=== PATIENT | female | born 1965 | race Caucasian/White ===

== ENCOUNTER 2021-09-18 15:02 | Outpatient (CLI) | payer BC, SELFPAY ==
--- NOTE | 2021-09-18 15:20 | CRLHL7_ITS ---
For Patients: As a result of the Century Cures Act, medical imaging exams and procedure reports are released immediately into your electronic medical record. You may view this report before your referring provider. If you have questions, please contact your health care provider. BILATERAL MAMMOGRAM WITH COMPUTER-AIDED DETECTION AND TOMOSYNTHESIS TECHNIQUE: CC and MLO views were obtained. These mammographic images have been obtained using full-field digital technique. These mammographic images were interpreted with the benefit of computer-aided detection. Breast Tomosynthesis was used in this interpretation. COMPARISON FILM: 08/19/2020, 08/15/2019, 07/19/2017. FINDINGS: The breasts are heterogeneously dense, which may obscure small masses IMPRESSION: There is no radiographic evidence for malignancy. ASSESSMENT: BI-RADS Category 1: Negative RECOMMENDATION: Routine screening mammogram in 1 year. A lay language report of this examination will be provided to the patient. Shayne Williamson M.D. Diagnostic Radiologist [email or web address] CHEIKH/bear / be/Dictated by: Shayne Williamson MD @ 09/19/2021 2:04:00 PM (Electronically Signed)
== END 2021-09-18 15:03 | disposition home or self-care (01) ==
LOC: MAMMO 15:03
PROVIDERS: PCP Physician Assistant Medical; Visit Provider Physician Assistant Medical
DX: Z12.31 Encounter for screening mammogram for malignant neoplasm of breast (principal); R92.2 Inconclusive mammogram
CPT/HCPCS: 77063; 77067

== ENCOUNTER 2022-03-27 09:53 | Outpatient (CLI) | payer BC, SELFPAY ==
[2022-03-27 15:05] LABS: Albumin* 4.6 g/dL (3.3-5.0); Chloride* 106 mmol/L (96-114)
[2022-03-27 15:06] LABS: Potassium* 4.2 mmol/L (3.6-5.1); Sodium* 141 mmol/L (135-149)
[2022-03-27 15:08] LABS: Alkaline Phosphatase* 74 U/L (40-150); Aspartate Amino Transferase* 29 U/L (12-35); Bilirubin Total* 0.7 mg/dL (0.1-1.5); Blood Urea Nitrogen* 22 mg/dL (7-30); Carbon Dioxide* 28 mmol/L (20-32); Cholesterol* 194 mg/dL (90-199); Creatinine* 0.7 mg/dL (0.5-1.5); Estimated Glomerular Filt Rate 101 ml/min; Glucose* 98 mg/dL (60-115); Total Protein* 7.3 g/dL (6.0-8.3)
[2022-03-27 15:09] LABS: Alanine Aminotransferase* 29 U/L (4-35); Calcium* 9.3 mg/dL (8.4-10.6); HDL Cholesterol* 68 mg/dL (>=50); LDL Cholesterol Calculated 102 mg/dL (<100); Triglycerides* 122 mg/dL (40-149)
== END 2022-03-27 09:54 | disposition home or self-care (01) ==
PROVIDERS: PCP Physician Assistant Medical; Visit Provider Physician Assistant Medical
DX: Z00.00 Encounter for general adult medical examination without abnormal findings (principal); Z13.6 Encounter for screening for cardiovascular disorders; Z13.29 Encounter for screening for other suspected endocrine disorder
CPT/HCPCS: 80053; 80061; 84443

== ENCOUNTER 2022-09-23 13:38 | Outpatient (CLI) | payer BC, SELFPAY ==
--- NOTE | 2022-09-23 14:00 | CRLHL7_ITS ---
For Patients: As a result of the Century Cures Act, medical imaging exams and procedure reports are released immediately into your electronic medical record. You may view this report before your referring provider. If you have questions, please contact your health care provider. BILATERAL SCREENING MAMMOGRAM WITH COMPUTER-AIDED DETECTION AND TOMOSYNTHESIS TECHNIQUE: CC and MLO views were obtained. These mammographic images have been obtained using full-field digital technique. These mammographic images were interpreted with the benefit of computer-aided detection. Breast Tomosynthesis was used in this interpretation. COMPARISON FILM: 09/18/21, 08/19/21, 08/15/19. FINDINGS: The breasts are heterogeneously dense, which may obscure small masses IMPRESSION: There is no radiographic evidence for malignancy. ASSESSMENT: BI-RADS Category 1: Negative RECOMMENDATION: Routine screening mammogram in 1 year. A lay language report of this examination will be provided to the patient. Mario Sierra M.D. Diagnostic/Nuclear Medicine Radiologist [email or web address] INA/Dictated by: Mario Sierra MD @ 09/24/2022 9:13:00 AM (Electronically Signed)
== END 2022-09-23 13:39 | disposition home or self-care (01) ==
PROVIDERS: PCP Physician Assistant Medical; Visit Provider Physician Assistant Medical
DX: Z12.31 Encounter for screening mammogram for malignant neoplasm of breast (principal); R92.2 Inconclusive mammogram
CPT/HCPCS: 77063; 77067

== ENCOUNTER 2023-03-29 09:32 | Outpatient (CLI) | payer BC, SELFPAY | END 2023-03-29 09:33 | disposition home or self-care (01) | LOC: NFLDREF 03-30 07:08 | PROVIDERS: PCP Physician Assistant Medical; Referring Provider Physician Assistant Medical; Visit Provider Physician Assistant | DX: Z01.419 Encounter for gynecological examination (general) (routine) without abnormal findings (principal); Z13.6 Encounter for screening for cardiovascular disorders; Z13.29 Encounter for screening for other suspected endocrine disorder; Z13.9 Encounter for screening, unspecified | CPT/HCPCS: 80048; 80061; 84443 ==

== ENCOUNTER 2023-04-01 14:45 | Outpatient (CLI) | payer BC, SELFPAY ==
--- NOTE | 2023-04-01 15:00 | CRLHL7_ITS ---
For Patients: As a result of the Century Cures Act, medical imaging exams and procedure reports are released immediately into your electronic medical record. You may view this report before your referring provider. If you have questions, please contact your health care provider. CLINICAL HISTORY: pelvic pain TECHNIQUE: 2D kinney scale ultrasound. In addition color Doppler and spectral Doppler analysis was performed of the pelvis using a transabdominal and transvaginal approach. FINDINGS: The myometrium has a normal uniform echotexture. The uterus measures 5.3 x 1.5 x 3.2 cm. The endometrial lining appears normal and measures 1.4 mm in thickness. The right ovary measures 1.9 x 0.8 x 0.7 cm in size and the left ovary measures 1.4 x 0.9 x 0.6 cm. The ovaries demonstrate normal arterial and venous blood flow on color Doppler and spectral Doppler analysis. There are no suspicious fluid collections within the cul-de-sac. IMPRESSION: Normal pelvic ultrasound. Dictated by Shayne Williamson MD @ 04/02/2023 9:04:20 AM (Electronically Signed)
== END 2023-04-01 14:46 | disposition home or self-care (01) ==
LOC: US 14:46
PROVIDERS: PCP Physician Assistant Medical; Visit Provider Physician Assistant
DX: R10.2 Pelvic and perineal pain (principal)
CPT/HCPCS: 76830; 76856; 93976

== ENCOUNTER 2023-04-22 15:28 | Outpatient (CLI) | payer BC, SELFPAY ==
--- NOTE | 2023-04-22 16:00 | CT_ITS ---
[facility] [address] [facility], [place] [address] Phone:?[phone] Fax:?[phone] Referring Physician Information: Rosalva Lovett PA-C [address] [place] [address] Phone:?[phone] Fax:?[phone] Patient:Abilio Bill D.O.B:?1965 Sex:?Female Phone:?[phone] [facility] MRN:?[id number] Exam Date:?04/22/2023 EXAM: CT ABDOMEN AND PELVIS WITH CONTRAST CLINICAL INFORMATION: Lower abdominal pain TECHNICAL INFORMATION: After IV injection of 69 mL of Isovue-370, axial sections were obtained through the abdomen and pelvis. Reformations were obtained in the coronal and sagittal planes. No immediate complications. COMPARISON: 11/15/2013 INTERPRETATION: Lung Bases: Clear. Abdomen: The liver, gallbladder, pancreas, spleen and adrenal glands appear unremarkable. No calcified gallstones. No biliary duct dilation. The kidneys are symmetrically enhancing. A few simple appearing cysts in the left kidney have slightly increased in size from the comparison exam but require no follow-up imaging. For instance, there is a 1.2 cm cyst in the lower pole of the left kidney which previously measured 0.9 cm. No hydronephrosis. No bowel obstruction. Moderate stool burden. Normal appendix. No abdominal or pelvic lymphadenopathy. No ascites. Normal vasculature. Pelvis: No bladder wall thickening. Uterus is present. No suspicious adnexal lesions. Musculoskeletal: No suspicious osseous findings. Mild degenerative changes in the spine. CONCLUSION: No acute process is identified in the abdomen or stomach. No definite findings to explain the patient's symptoms. [facility] is committed to minimizing radiation exposure while maintaining high-quality CT images. Technologists adjust the mA and/or kV according to each patient's size to optimize dose. Since we began voluntarily reporting to the [employer]'s Dose Index Registry, our average CT doses have been consistently lower than the national average. Electronically signed on 04/23/2023 10:43:00 AM by Juan Tatum D.O
== END 2023-04-22 15:29 | disposition home or self-care (01) ==
LOC: CT 15:29
PROVIDERS: PCP Physician Assistant Medical; Visit Provider Physician Assistant Medical
DX: R10.30 Lower abdominal pain, unspecified (principal)
CPT/HCPCS: 74177; Q9967

== ENCOUNTER 2023-09-28 13:07 | Outpatient (CLI) | payer BC, SELFPAY ==
--- NOTE | 2023-09-28 13:12 | CRLHL7_ITS ---
For Patients: As a result of the Century Cures Act, medical imaging exams and procedure reports are released immediately into your electronic medical record. You may view this report before your referring provider. If you have questions, please contact your health care provider. BILATERAL SCREENING MAMMOGRAM WITH COMPUTER-AIDED DETECTION AND TOMOSYNTHESIS TECHNIQUE: CC and MLO views were obtained. These mammographic images have been obtained using full-field digital technique. These mammographic images were interpreted with the benefit of computer-aided detection. Breast tomosynthesis was used in this interpretation. COMPARISON FILM: 09/23/22, 09/18/21, 08/19/20. FINDINGS: The breasts are heterogeneously dense, which may obscure small masses. IMPRESSION: There is no radiographic evidence for malignancy. ASSESSMENT: BI-RADS Category 1: Negative RECOMMENDATION: Routine screening mammogram in 1 year. A lay language report of this examination will be provided to the patient. SHAYNE KELLER M.D. Diagnostic Radiologist [email or web address] Transcribed: 2:[address]/Dictated by: Shayne Keller MD @ 09/29/2023 12:18:00 PM (Electronically Signed)
== END 2023-09-28 13:08 | disposition home or self-care (01) ==
LOC: MAMMO 13:07
PROVIDERS: PCP Physician Assistant Medical; Visit Provider Physician Assistant
DX: Z12.31 Encounter for screening mammogram for malignant neoplasm of breast (principal)
CPT/HCPCS: 77063; 77067

== ENCOUNTER 2024-04-03 09:25 | Outpatient (CLI) | payer BC, SELFPAY | END 2024-04-03 09:26 | disposition home or self-care (01) | PROVIDERS: PCP Physician Assistant Medical; Visit Provider Physician Assistant | DX: K59.09 Other constipation (principal); Z13.6 Encounter for screening for cardiovascular disorders; Z13.1 Encounter for screening for diabetes mellitus; Z13.29 Encounter for screening for other suspected endocrine disorder; Z13.820 Encounter for screening for osteoporosis | CPT/HCPCS: 80061; 82306; 82947; 84443 ==

== ENCOUNTER 2024-10-17 17:55 | Outpatient (CLI) | payer BC, SELFPAY ==
--- NOTE | 2024-10-17 18:20 | CRLHL7_ITS ---
For Patients: As a result of the Century Cures Act, medical imaging exams and procedure reports are released immediately into your electronic medical record. You may view this report before your referring provider. If you have questions, please contact your health care provider. INDICATION: BILATERAL SCREENING MAMMOGRAM, ASYMPTOMATIC 58 Y/O FEMALE COMPARISON: 09/28/2023, 09/23/2022, 09/18/2021 TECHNIQUE: Digital mammogram in CC and MLO projections including computer-aided detection (CAD) and tomosynthesis. BREAST COMPOSITION: The breasts are heterogeneously dense, which may obscure small masses. FINDINGS: No suspicious findings. ASSESSMENT: BI-RADS 1 Negative RECOMMENDATION: Annual screening mammogram. A lay language report of this examination will be provided to the patient. Dictated by: Shayne Wliliamson MD @ 10/18/2024 10:07:12 (Electronically Signed)
== END 2024-10-17 17:56 | disposition home or self-care (01) ==
LOC: MAMMO 17:56
PROVIDERS: PCP Physician Assistant Medical; Visit Provider Physician Assistant Medical
DX: Z12.31 Encounter for screening mammogram for malignant neoplasm of breast (principal); R92.333 Mammographic heterogeneous density, bilateral breasts
CPT/HCPCS: 77063; 77067